=== PATIENT | male | born 1980 | race Caucasian/White ===

== ENCOUNTER 2016-11-14 14:25 | Outpatient (CLI) | payer OTHER ==
--- NOTE | 2016-11-14 17:02 | Ultrasound Report ---
BILATERAL LOWER EXTREMITY VENOUS DUPLEX: 11/14/2016 CLINICAL INDICATION: Superficial thrombophlebitis. TECHNIQUE: Real-time sonographic vascular imaging was performed by the manager dental through the bilate ral lower extremities utilizing both color flow and Doppler spectral analysis. Multiple representativ e static images were saved for review. FINDINGS: A bilateral lower extremity venous sonogram is performed revealing the common femoral, supe rficial femoral, profunda femoris, and popliteal veins to be adequately visualized without intralumin al defects. There is normal venous compression, augmentation, phasicity, and spontaneity of venous fl ow. In the calf, the visualized more cephalad portions of posterior tibial and peroneal veins are gr ossly compressible, without filling defects. Scanning of the palpable abnormality in the proximal left calf does demonstrate a thrombosed superfic ial varicosity. IMPRESSION: NO EVIDENCE OF DEEP VENOUS THROMBOSIS. JOB #: [id number] EXT JOB #:
== END 2016-11-14 14:26 | disposition home or self-care (01) ==
LOC: DI 14:25
PROVIDERS: ATTEND Family Medicine
DX: I80.9 Phlebitis and thrombophlebitis of unspecified site (principal); I83.90 Asymptomatic varicose veins of unspecified lower extremity
CPT/HCPCS: 93970

== ENCOUNTER 2018-12-30 15:09 | Outpatient (CLI) | payer OTHER | END 2018-12-30 23:59 | disposition home or self-care (01) | LOC: LAB.R 15:09 | PROVIDERS: ATTEND Nurse Practitioner | DX: R35.0 Frequency of micturition (principal) | CPT/HCPCS: 87086 ==

== ENCOUNTER 2019-01-15 10:44 | Outpatient (CLI) | payer OTHER ==
--- NOTE | 2019-01-15 12:16 | CT Report ---
Reason: FLANK PAIN, RIGHT Procedure Date: 01/15/2019 Accession Number: [id number] / [id number] Procedure: CT - Abdomen/Pelvis WO CPT Code: FULL RESULT: EXAM: CT ABDOMEN AND PELVIS (CT KUB) EXAM DATE: 01/15/2019 10:55 AM. CLINICAL HISTORY: Flank pain, right. COMPARISONS: None. TECHNIQUE: Routine axial helical CT imaging was performed through the abdomen and pelvis without IV contrast. Reconstructions: Coronal and sagittal. In accordance with CT protocol optimization, one or more of the following dose reduction techniques were utilized for this exam: automated exposure control, adjustment of mA and/or KV based on patient size, or use of iterative reconstructive technique. FINDINGS: Lung Bases: Unremarkable. Right Kidney/Ureter: No stones, hydronephrosis, or hydroureter. No perinephric fat stranding. Left Kidney/Ureter: There is a 6 mm nonobstructing stone left lower pole collecting system. There is mild left-sided hydronephrosis and hydroureter. There is a 7 mm distal ureteral stone just above the left UVJ. No perinephric fat stranding. Other Solid Organs: Noncontrast images of the solid organs are grossly unremarkable. Gallbladder/Bile Ducts: Unremarkable. Peritoneal Cavity: No free fluid, free air or tomas adenopathy. Bowel is grossly unremarkable. The appendix is normal in the right lower quadrant. Pelvic Organs: No bladder stones or wall thickening. Noncontrast images of the visualized pelvic organs are unremarkable. Vasculature: Unremarkable. Other: None. IMPRESSION: 1. 7 mm distal left ureteral stone just above the UVJ; mild proximal hydroureter and hydronephrosis. 2. Nonobstructing 6 mm left lower pole nephrolithiasis. 3. No etiology for right-sided flank pain. Normal appendix. [facility]
== END 2019-01-15 10:45 | disposition home or self-care (01) ==
LOC: DI 10:44
PROVIDERS: ATTEND Physician Assistant
DX: R10.9 Unspecified abdominal pain (principal); N13.30 Unspecified hydronephrosis; N20.2 Calculus of kidney with calculus of ureter
CPT/HCPCS: 74176

== ENCOUNTER 2019-02-11 15:37 | Outpatient (CLI) | payer OTHER ==
--- NOTE | 2019-02-11 17:36 | XRAY Report ---
Reason: KIDNEY STONES Procedure Date: 02/11/2019 Accession Number: [id number] / [id number] Procedure: XRN - Abdomen 1 View X-Ray CPT Code: 29257 FULL RESULT: EXAM: ABDOMEN RADIOGRAPHY EXAM DATE: 02/11/2019 03:51 PM. CLINICAL HISTORY: KIDNEY STONES. COMPARISON: CT of the abdomen and pelvis from 01/15/2019. TECHNIQUE: 1 view. FINDINGS: Bowel Gas Pattern: Unremarkable. No dilated bowel loops are demonstrated. Other: Previously seen calcification in the left distal ureter is no longer identified. There is a 6 mm calcification overlying the lower pole of the left renal shadow, which probably corresponds to a nonobstructing calculus seen on previous CT. IMPRESSION: 1. Apparent resolution of previously seen distal left ureteral calculus. 2. Calcification overlying the lower pole of the left kidney likely corresponds to nonobstructing calculus seen on previous CT. [facility]
== END 2019-02-11 15:38 | disposition home or self-care (01) ==
LOC: DI.N 15:37
PROVIDERS: ATTEND Specialist
DX: N20.0 Calculus of kidney (principal)
CPT/HCPCS: 74018